=== PATIENT | male | born 1940 | race African-American/Black ===

== ENCOUNTER 2022-09-06 03:27 | Emergency (ER) | payer OTHER ==
[~2022-09-06] VITALS: Ht 177.8 cm; Wt 73.0 kg
[2022-09-06 04:13] LABS: HEMATOCRIT. 32.2 % (42.0-52.0); HEMOGLOBIN. 10.6 g/dL (14.0-18.0); MEAN CORPUSCULAR HEMOGLOBIN 30.8 pg (28.0-32.0); MEAN CORPUSCULAR VOLUME 93.7 fL (80.0-94.0); MEAN PLATELET VOLUME 7.7 fl (7.4-10.4); PLATELET 130 x1000/uL (130-400); RED BLOOD CELL COUNT 3.43 mill/uL (4.7-6.1); RED CELL DISTRIBUTION WIDTH 14.9 % (11.6-14.6)
[2022-09-06 04:23] LABS: CHLORIDE 110 mEq/L (98-107)
[2022-09-06 04:44] LABS: PLATELET ESTIMATE NORMAL
[2022-09-06] MEDS ORDERED: ASPIRIN 81MG TABLET PO ONE (05:45)
[2022-09-06] MEDS ORDERED: CARVEDILOL 12.5MG TABLET PO SCH (07:00)
[2022-09-06 09:00] LABS: CLARITY URINE CLOUDY (CLEAR); COLOR URINE YELLOW (YELLOW); KETONES URINE TRACE (NEGATIVE); LEUKOCYTE ESTERASE URINE 1+ (NEGATIVE); NITRITE URINE NEGATIVE (NEGATIVE); OCCULT BLOOD URINE 2+ (NEGATIVE); PH URINE 5.5 (4.5-8.0); PROTEIN URINE 4+ (NEGATIVE); SPECIFIC GRAVITY URINE 1.021 (1.005-1.030)
[2022-09-06] MEDS ORDERED: HYDRALAZINE 20MG/ML VIAL IV PRN (11:00)
[2022-09-06 11:30] VITALS: BP 140/75
== END 2022-09-06 14:20 | disposition left against medical advice (07) ==
LOC: ER 03:44 → EDBEDREQ 05:45 → ER 14:20 → CANBEDREQ 09-08 02:45
DX: R53.1 Weakness (principal); E11.9 Type 2 diabetes mellitus without complications; Z86.73 Personal history of transient ischemic attack (TIA), and cerebral infarction without residual deficits
CPT/HCPCS: 36415; 71045; 80053; 81003; 83605; 84145; 84484; 85025; 87077; 87186; 93005; 99285